=== PATIENT | female | born 1945 | race Caucasian/White ===

== ENCOUNTER 2016-10-09 17:45 | Emergency (ER) | payer OTHER | END 2016-10-09 19:43 | LOC: ER 17:45 | DX: I46.9 Cardiac arrest, cause unspecified (principal); G43.909 Migraine, unspecified, not intractable, without status migrainosus; K21.9 Gastro-esophageal reflux disease without esophagitis; I25.10 Atherosclerotic heart disease of native coronary artery without angina pectoris; E78.5 Hyperlipidemia, unspecified; G47.30 Sleep apnea, unspecified; M19.90 Unspecified osteoarthritis, unspecified site; M81.0 Age-related osteoporosis without current pathological fracture; I25.2 Old myocardial infarction; J44.9 Chronic obstructive pulmonary disease, unspecified; G89.29 Other chronic pain; F31.9 Bipolar disorder, unspecified; I50.9 Heart failure, unspecified; N18.3 Chronic kidney disease, stage 3 (moderate); F17.210 Nicotine dependence, cigarettes, uncomplicated; F10.99 Alcohol use, unspecified with unspecified alcohol-induced disorder; Z90.49 Acquired absence of other specified parts of digestive tract; Z90.721 Acquired absence of ovaries, unilateral; Z85.820 Personal history of malignant melanoma of skin; Z85.43 Personal history of malignant neoplasm of ovary; Z95.5 Presence of coronary angioplasty implant and graft; Z86.718 Personal history of other venous thrombosis and embolism; Z86.2 Personal history of diseases of the blood and blood-forming organs and certain disorders involving the immune mechanism; Z86.73 Personal history of transient ischemic attack (TIA), and cerebral infarction without residual deficits; Z90.89 Acquired absence of other organs; Z88.8 Allergy status to other drugs, medicaments and biological substances; Z88.6 Allergy status to analgesic agent; Z88.5 Allergy status to narcotic agent ==